=== PATIENT | male | born 1980 | race Two or more races ===

== ENCOUNTER 2025-02-28 06:30 | Emergency (ER) | payer MEDICAID, SELFPAY ==
[2025-02-28 06:32] VITALS: BP 126/88; PULSE 93; RESP 17; TEMP 36.6; O2SAT 97
[2025-02-28 06:40] VITALS: PULSE 107; O2SAT 98; BMI 25.0
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
[2025-02-28 07:18] LABS: Basophils # (Auto) 0.1 Thou/mm3 (0.0-0.2); Basophils % (Auto) 1 % (0-2.5); Eosinophils # (Auto) 0.2 Thou/mm3 (0.0-0.5); Eosinophils % (Auto) 3 % (0-10); Hematocrit 47.5 % (41.0-53.0); Hemoglobin 16.2 g/dL (13.5-16.0); Immature Granulocytes % (Auto) 0 % (0-0); Immature Granulocytes Auto 0.03 Thou/mm3 (0.00-0.00); Lymphocytes # (Auto) 1.8 Thou/mm3 (1.0-4.8); Lymphocytes % (Auto) 24 % (10-50); Mean Corpuscular HGB Conc 34.1 g/dl (31.0-37.0); Mean Corpuscular Hemoglobin 30.2 pg (25.0-35.0); Mean Corpuscular Volume 89 fL (80-100); Monocytes # (Auto) 0.7 Thou/mm3 (0.0-0.8); Monocytes % (Auto) 9 % (0-12); Neutrophils # (Auto) 4.9 Thou/mm3 (1.8-7.7); Neutrophils % (Auto) 63 % (37-80); Nucleated Red Blood Cell % 0 /100 WBC (0); Platelet Count 348 Thou/mm3 (140-440); RDW Standard Deviation 45.5 fL (35.1-43.9); Red Blood Count 5.37 Miln/mm3 (4.50-5.90); White Blood Count 7.7 Thou/mm3 (3.8-10.6)
[2025-02-28 07:29] LABS: Alanine Aminotransferase 21 U/L (10-49); Albumin, Serum 4.6 gm/dL (3.5-5.0); Albumin/Globulin Ratio 1.6 (1.2-2.2); Alkaline Phosphatase 101 U/L (46-116); Anion Gap 6 (7-16); Aspartate Amino Transferase 27 U/L (0-34); BUN/Creatinine Ratio 6 Ratio (12-20); Bilirubin,Total 0.5 mg/dL (0.3-1.2); Blood Urea Nitrogen < 5 mg/dL (9-23); Calcium 9.2 mg/dL (8.3-10.6); Calcium (Corrected) 9.2 mg/dL (8.5-10.1); Carbon Dioxide 26.9 mMol/L (20.0-31.0); Chloride 107 mMol/L (98-107); Creatinine (Component) 0.8 mg/dL (0.6-1.3); Estimated Creatinine Clearance 106.3 mL/min (>60); Globulin 2.8 gm/dL (2.3-3.5); Glucose 96 mg/dL (74-106); Osmolality,Calculated 276 (275-295); Potassium 3.8 mMol/L (3.4-5.1); Sodium 140 mMol/L (136-145); Total Protein 7.4 gm/dL (5.7-8.2); Troponin I < 0.020 ng/mL (0.0-0.045); eGFR > 60 See Note
[2025-02-28 10:07] LABS: Troponin I < 0.020 ng/mL (0.0-0.045)
--- NOTE | 2025-02-28 10:13 | PD.EDCHEST ---
ED Chest Pain RME/HPI General Chief Complaint: Chest Pain Stated Complaint: SOB, CHEST PAIN Time Seen by Provider: 02/28/25 07:58 Arrival date/time: 02/28/25 06:30 44-year-old male with medical history significant for cigarette smoking, methamphetamine abuse, alcohol abuse presents for concerns for chest pain. There are no other associated symptoms or aggravating factors no other modifying factors, patient denies taking medication before coming to ER today Limitations: no limitations Related Data Previous Rx's ?Medication ?Instructions ?Recorded sucralfate 100 mg/mL oral 10 ml PO BID #400 mL 03/13/23 suspension (Carafate) ondansetron 4 mg disintegrating 4 mg PO Q8H PRN nausea and 08/11/23 tablet vomiting #14 tabs Allergies Allergy/AdvReac Type Severity Reaction Status Date / Time No Known Allergies Allergy Verified 03/12/23 22:18 Review of Systems Review of Systems Systems Reviewed: All systems reviewed, normal except as documented Constitutional Constitutional: Reports system reviewed and no additional complaints, except as documented, Denies fever(s) and Denies headache(s) Eyes Eyes: Reports system reviewed and no additional complaints, except as documented and Denies blurry vision ENT Ears, Nose, Mouth, and Throat: Reports system reviewed and no additional complaints, except as documented, Denies headache(s), Denies nasal congestion and Denies nasal discharge Cardiovascular Cardiovascular: Reports system reviewed and no additional complaints, except as documented, Reports chest pain and Denies dyspnea Respiratory Respiratory: Reports system reviewed and no additional complaints, except as documented, Denies chest congestion, Denies cough and Denies dyspnea Gastrointestinal Gastrointestinal: Reports system reviewed and no additional complaints, except as documented and Denies abdominal pain Integumentary/Breasts Skin/Breast: Reports system reviewed and no additional complaints, except as documented and Denies rash Neurologic Neurologic: Reports system reviewed and no additional complaints, except as documented, Reports as per HPI and Denies headache(s) Past Medical History Past Medical History CARDIAC: Negative Congestive Heart Failure RESPIRATORY: Negative Chronic Obstructive Pulmonary Disease (COPD) GENITOURINARY: Negative Renal Disease ENDOCRINE: Negative Diabetes Mellitus Type 1 or Diabetes Mellitus Type 2 Social History SMOKING STATUS: Current every day smoker SUBSTANCE USE: methamphetamine ED Exam General Limitations: Present no limitations General appearance: Present alert and in no apparent distress Head Head exam: Present atraumatic, normocephalic and normal inspection Eye Eye exam: Present normal appearance, PERRL and EOMI; Absent conjunctival injection ENT ENT exam: Present normal exam, normal oropharynx and mucous membranes moist Neck Neck exam: Present normal inspection, full ROM and trachea midline Chest Chest inspection: Present normal inspection and symmetric chest wall rise Respiratory Respiratory exam: Present normal lung sounds bilaterally; Absent respiratory distress Cardiovascular Cardiovascular exam: Present regular rate, normal rhythm and normal heart sounds; Absent bradycardia, tachycardia, irregular rhythm, systolic murmur, diastolic murmur or JVD Abdominal Exam Abdominal exam: Present soft and normal bowel sounds Extremities Exam Extremities exam: Present normal inspection and full ROM Back Exam Back exam: Present normal inspection and full ROM Neurological Exam Neurological exam: Present alert, oriented X3 and CN II-XII intact Psychiatric Psychiatric exam: Present normal affect and normal mood Skin Skin exam: Present warm, dry, intact and normal color Course Quality Measures none Orders Category Date Time Status EKG (ED ONLY) *Do not use* NOW Care 02/28/25 06:55 Completed EKG (ED Only) Stat Exams 02/28/25 06:55 Ordered XR chest 2V Stat Exams 02/28/25 06:55 Completed CBC Stat Lab 02/28/25 07:05 Completed Comprehensive Metabolic Panel Stat Lab 02/28/25 07:05 Completed Troponin I Stat Lab 02/28/25 07:05 Completed Troponin I Stat Lab 02/28/25 09:46 Completed Vital Signs Vital signs: Vital Signs Temperature 97.8 F 02/28/25 06:32 Pulse Rate 93 02/28/25 06:32 Respiratory Rate 17 02/28/25 06:32 Blood Pressure 126/88 H 02/28/25 06:32 Pulse Oximetry (%) 97 02/28/25 06:32 Oxygen Delivery Method Room Air 02/28/25 06:32 O2 saturation 97% room air WNL Procedures -ED EKG Interpretation #1: Date of EK02/28/25 Time of EK:56 Rate: 92 Interpretation: Interpreted by me EKG Impression: Normal sinus rhythm, No acute ST-T changes, No ectopy, No ischemic changes, Normal QRS, Normal intervals and Normal axis Chest Pain MDM Narrative MDM Narrative:: 44-year-old male with medical history significant for cigarette smoking, methamphetamine abuse, alcohol abuse presents for concerns for chest pain. There are no other associated symptoms or aggravating factors no other modifying factors, patient denies taking medication before coming to ER today On exam patient does not appear ill or toxic in no acute distress Lab work imaging and EKG obtained no acute emergent findings noted Troponin negative x 2 EKG sinus rhythm Patient discharged home in no distress to follow-up with primary care doctor in the next 24 to 48 hours and for any worsening symptoms to return to the ER immediately Patient data External records reviewed:: [facility] previous records Clinical information provided by:: patient Social determinants that could affect healthcare access:: substance use Patient has the following chronic illnesses:: See history How is presenting disease/condition affected by chronic disease/condition?: exacerbated by Evaluation data The following diagnostics were reviewed and interpreted by me:: lab results, radiology exam(s) and EKG tracing(s) Lab and/or radiology exams considered but not ordered:: Labs, radiology, EKG obtained Interpretation Summary: Reviewed by me Medications / Prescriptions Medications or Prescriptions considered but not ordered:: No meds Medication administrations:: No meds Consultations Consultation(s) initiated? (list below): No Diagnosis Chest Pain Differential Diagnosis: pneumothorax, atypical chest pain, st elevation myocardial infarction, costochondritis and chest pain Most likely diagnosis given after review of the tests above:: Chest pain Admission Indicated Admission indicated?: not indicated Admission Request Was there a request for admission?: No Disposition Plan Disposition Plan: Discharge Discharge Attestation Discharge Attestation: The patient and all family members were given an opportunity to ask questions and understood the discharge instructions. Discharge instructions specifically effects, indications for sooner follow up or return to the emergency department, and the expected course of current diagnosis. Patient condition: Stable Discharge Plan Plan Patient Disposition: HOME (Self Care) Disposition Comment: Stable Prescriptions/Referrals Prescriptions/Med Rec: No Action sucralfate [Carafate] 100 mg/mL suspension 10 ml PO BID Qty: 400 0RF ondansetron 4 mg tablet,disintegrating 4 mg PO Q8H PRN (Reason: nausea and vomiting) Qty: 14 0RF Referrals: Rosalio Aggarwal MD [Primary Care Provider] - 03/03/25 Problem List Clinical Impression: Atypical chest pain Patient/Caregiver Discharge Instructions Education Materials: ED Chest Pain, Noncardiac Additional Instructions: Please follow up with your primary care doctor in the next 24-48hrs for any worsening symptoms return here immediately Print Language: Tamazight Stand Alone Forms: Candy Egan Info., Patient Portal Info Letter PA/BONDING SUPERVISOR Supervising Physician PA/BONDING SUPERVISOR Supervising Physician: Dr. manning
[2025-02-28 10:22] VITALS: BP 129/89; PULSE 92; RESP 16; TEMP 36.6; O2SAT 95
== END 2025-02-28 10:20 | disposition home or self-care (01) ==
PROVIDERS: Nurse Practitioner Primary Care; Emergency Provider Emergency Medicine; PCP Family Medicine
DX: R07.89 Other chest pain (principal); F17.210 Nicotine dependence, cigarettes, uncomplicated
CPT/HCPCS: 36415; 71046; 80053; 80307; 84484; 85025; 93005; 99283

== ENCOUNTER 2025-04-10 12:06 | Emergency (ER) | payer MEDICAID, SELFPAY ==
[2025-04-10 12:07] VITALS: BMI 25.0
--- NOTE | 2025-04-10 12:09 | EKG_ITS ---
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
[2025-04-10 12:22] VITALS: BP 132/91; PULSE 95; RESP 18; TEMP 36.6; O2SAT 98; BMI 25.8
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
[2025-04-10 13:03] LABS: Collection Type, Urine Clean Catch; Squamous Epithelial Cell,Urine 0 /hpf (0-5)
[2025-04-10 13:05] LABS: Bilirubin,Urine Negative (Negative); Blood,Urine Negative (Negative); Clarity,Urine Clear (Clear/Hazy); Color,Urine Yellow (Lt Yel-Yel); Glucose, Urine Negative (Negative); Ketones,Urine Trace (Negative); Leukocyte Esterase,Urine Negative (Negative); Nitrite,Urine Negative (Negative); Protein,Urine Negative (Neg - Trace); RBC,Urine 1 /hpf (0-3); Specific Gravity,Urine 1.029 (1.001-1.035); WBC,Urine 1 /hpf (0-5)
[2025-04-10 13:15] LABS: Amphetamine/Methamp Scrn,U Negative (Negative); Barbiturate Screen,Urine Negative (Negative); Benzodiazepines Screen,Urine Negative (Negative); Benzoylecgonine Screen, Ur Negative (Negative); Fentanyl Screen,Urine Negative (Negative); Opiate Screen,Urine Negative (Negative); THC Screen,Urine Negative (Negative)
[2025-04-10 13:19] LABS: Basophils # (Auto) 0.1 Thou/mm3 (0.0-0.2); Basophils % (Auto) 1 % (0-2.5); Eosinophils # (Auto) 0.3 Thou/mm3 (0.0-0.5); Eosinophils % (Auto) 3 % (0-10); Hematocrit 45.1 % (41.0-53.0); Hemoglobin 15.8 g/dL (13.5-16.0); Immature Granulocytes % (Auto) 1 % (0-0); Immature Granulocytes Auto 0.04 Thou/mm3 (0.00-0.00); Lymphocytes % (Auto) 25 % (10-50); Mean Corpuscular Hemoglobin 31.5 pg (25.0-35.0); Mean Corpuscular Volume 90 fL (80-100); Monocytes # (Auto) 0.7 Thou/mm3 (0.0-0.8); Monocytes % (Auto) 9 % (0-12); Neutrophils # (Auto) 5.1 Thou/mm3 (1.8-7.7); Neutrophils % (Auto) 62 % (37-80); Nucleated Red Blood Cell % 0 /100 WBC (0); Platelet Count 304 Thou/mm3 (140-440); RDW Standard Deviation 45.6 fL (35.1-43.9); Red Blood Count 5.01 Miln/mm3 (4.50-5.90); White Blood Count 8.2 Thou/mm3 (3.8-10.6)
[2025-04-10 13:34] LABS: B-Type Natriuretic Peptide < 20 pg/mL (0-100)
[2025-04-10 13:37] LABS: Alanine Aminotransferase 99 U/L (10-49); Albumin, Serum 4.4 gm/dL (3.5-5.0); Alkaline Phosphatase 142 U/L (46-116); Anion Gap 6 (7-16); Aspartate Amino Transferase 93 U/L (0-34); BUN/Creatinine Ratio 13 Ratio (12-20); Bilirubin,Total 0.3 mg/dL (0.3-1.2); Blood Urea Nitrogen 13 mg/dL (9-23); Carbon Dioxide 29.8 mMol/L (20.0-31.0); Chloride 106 mMol/L (98-107); Estimated Creatinine Clearance 85.1 mL/min (>60); Globulin 2.2 gm/dL (2.3-3.5); Glucose 81 mg/dL (74-106); Osmolality,Calculated 282 (275-295); Potassium 4.7 mMol/L (3.4-5.1); Sodium 142 mMol/L (136-145); Total Protein 6.6 gm/dL (5.7-8.2); Troponin I < 0.002 ng/mL (0.0-0.045); eGFR > 60 See Note
[2025-04-10 15:40] VITALS: BP 147/91; PULSE 77; RESP 17; TEMP 36.5; O2SAT 98
== END 2025-04-10 15:43 | disposition home or self-care (01) ==
PROVIDERS: Nurse Practitioner Family; Emergency Provider Emergency Medicine
DX: R07.2 Precordial pain (principal)
CPT/HCPCS: 36415; 71046; 80053; 80307; 81001; 83880; 84484; 85025; 93005; 99283

== ENCOUNTER 2025-04-19 13:46 | Emergency (ER) | payer MEDICAID, SELFPAY ==
[2025-04-19 13:53] VITALS: BP 136/88; PULSE 109; RESP 20; TEMP 36.8; O2SAT 95; BMI 24.7
--- NOTE | 2025-04-19 14:15 | EDNOTE_ITS ---
ED Chest Pain RME/HPI General Chief Complaint: Chest Pain Stated Complaint: CHEST PAIN, BLACK STOOL Time Seen by Provider: 04/19/25 13:49 Arrival date/time: 04/19/25 13:46 This is a 44-year-old male that comes into the emergency room with complaints of chest pain. Patient states he was seen here approximately 5 days ago for the same reason. Patient able to elicit his chest pain with movement of his left arm. Patient states it hurts to take deep breaths at times. Patient states he started having black stool recently. But he also started taking iron supplementation. Patient having no acute bright red blood coming out of his rectum. Related Data Previous Rx's ?Medication ?Instructions ?Recorded sucralfate 100 mg/mL oral 10 ml PO BID #400 mL 3 suspension (Carafate) ondansetron 4 mg disintegrating 4 mg PO Q8H PRN nausea and 08/11/23 tablet vomiting #14 tabs cyclobenzaprine 10 mg tablet 10 mg PO HS #20 tabs 06/06 ibuprofen 800 mg tablet 800 mg PO Q6H PRN pain #20 t abs 04/19/25 Allergies Allergy/AdvReac Type Severity Reaction Status Date / Time No Known Allergies Allergy Verified 04/10/25 12:08 Course Orders Category Date Time Status CBC Stat Lab 04/19/25 14:42 Completed Comprehensive Metabolic Panel Stat Lab 04/19/25 14:42 Completed CYCLObenzaPRINE [Flexeril] Med 04/19/25 14:16 Discontinued 10 mg PO X1 ONE Ibuprofen Tab [Motrin Tab] Med 04/19/25 14:16 Discontinued 800 mg PO X1 ONE Vital Signs Vital signs: Vital Signs Temperature 98.3 F 04/19/25 13:53 Pulse Rate 109 H 04/19/25 13:53 Respiratory Rate 20 04/19/25 13:53 Blood Pressure 136/88 H 04/19/25 13:53 Pulse Oximetry (%) 95 04/19/25 13:53 Oxygen Delivery Method Room Air 04/19/25 13:53 Chest Pain MDM Narrative MDM Narrative:: Discussed patient at length. Patient feels better after medications. Patient taking iron for the past couple weeks. It is likely this is making his stool dark in color. Patient did not want rectal exam at this time. Labs reviewed and were unremarkable patient feels better after medications. Will send patient home with muscle relaxers and anti-inflammatories. Patient told to follow-up with primary provider in 1 to 2 days [place] to the emergency room if symptoms change or worsen peer Medications / Prescriptions Medication administrations:: Medication Administration History Discontinued Medications Cyclobenzaprine HCl (Cyclobenzaprine 5 Mg Tablet) 10 mg PO X1 ONE Stop: 04/19/25 14:17 Last Admin: 04/19/25 15:16 Dose: 10 mg Documented By: WILLIE Ibuprofen (Ibuprofen Tab 400 Mg Tablet) 800 mg PO X1 ONE Stop: 04/19/25 14:17 Last Admin: 04/19/25 15:16 Dose: 800 mg Documented By: WILLIE Discharge Plan Plan Patient Disposition: HOME (Self Care) Patient condition on transfer: Stable Prescriptions/Referrals Prescriptions/Med Rec: New cyclobenzaprine 10 mg tablet 10 mg PO HS Qty: 20 0RF ibuprofen 800 mg tablet 800 mg PO Q6H PRN (Reason: pain) Qty: 20 0RF No Action sucralfate [Carafate] 100 mg/mL suspension 10 ml PO BID Qty: 400 0RF ondansetron 4 mg tablet,disintegrating 4 mg PO Q8H PRN (Reason: nausea and vomiting) Qty: 14 0RF Referrals: Kassy Case MD [Primary Care Provider] - In 1 week Problem List Clinical Impression: Costochondritis, Chest pain Patient/Caregiver Discharge Instructions Discharge Activity: activity as tolerated Education Materials: Costochondritis Additional Instructions: Follow up with primary provider in 1-2 days. Come back to ED if symptoms change or worsen Print Language: Burkinan Stand Alone Forms: Candy Award Info., Patient Portal Info Letter PA/PRINCIPAL ELECTRICAL ENGINEER Supervising Physician PA/PRINCIPAL ELECTRICAL ENGINEER Supervising Physician: corky
[2025-04-19 14:49] LABS: Basophils # (Auto) 0.1 Thou/mm3 (0.0-0.2); Basophils % (Auto) 1 % (0-2.5); Eosinophils # (Auto) 0.2 Thou/mm3 (0.0-0.5); Eosinophils % (Auto) 3 % (0-10); Hematocrit 41.8 % (41.0-53.0); Hemoglobin 14.6 g/dL (13.5-16.0); Immature Granulocytes % (Auto) 1 % (0-0); Immature Granulocytes Auto 0.04 Thou/mm3 (0.00-0.00); Lymphocytes # (Auto) 2.2 Thou/mm3 (1.0-4.8); Lymphocytes % (Auto) 31 % (10-50); Mean Corpuscular HGB Conc 34.9 g/dl (31.0-37.0); Mean Corpuscular Hemoglobin 31.3 pg (25.0-35.0); Mean Corpuscular Volume 90 fL (80-100); Monocytes # (Auto) 0.6 Thou/mm3 (0.0-0.8); Monocytes % (Auto) 8 % (0-12); Neutrophils # (Auto) 4.1 Thou/mm3 (1.8-7.7); Neutrophils % (Auto) 56 % (37-80); Nucleated Red Blood Cell % 0 /100 WBC (0); Platelet Count 313 Thou/mm3 (140-440); RDW Standard Deviation 44.3 fL (35.1-43.9); Red Blood Count 4.67 Miln/mm3 (4.50-5.90); White Blood Count 7.2 Thou/mm3 (3.8-10.6)
[2025-04-19 15:06] LABS: Alanine Aminotransferase 47 U/L (10-49); Albumin, Serum 4.2 gm/dL (3.5-5.0); Albumin/Globulin Ratio 2.3 (1.2-2.2); Alkaline Phosphatase 104 U/L (46-116); Anion Gap 6 (7-16); BUN/Creatinine Ratio 11 Ratio (12-20); Bilirubin,Total 0.3 mg/dL (0.3-1.2); Blood Urea Nitrogen 12 mg/dL (9-23); Calcium 8.8 mg/dL (8.3-10.6); Calcium (Corrected) 8.8 mg/dL (8.5-10.1); Carbon Dioxide 30.3 mMol/L (20.0-31.0); Chloride 108 mMol/L (98-107); Creatinine (Component) 1.1 mg/dL (0.6-1.3); Estimated Creatinine Clearance 77.3 mL/min (>60); Globulin 1.8 gm/dL (2.3-3.5); Glucose 98 mg/dL (74-106); Osmolality,Calculated 286 (275-295); Potassium 4.6 mMol/L (3.4-5.1); Sodium 144 mMol/L (136-145); eGFR > 60 See Note
[2025-04-19] MEDS: CYCLObenzaPRINE 5 MG TABLET 10 MG PO (15:16)
[2025-04-19] MEDS: IBUPROFEN TAB 400 MG TABLET 800 MG PO (15:16)
[2025-04-19 16:46] VITALS: BP 135/83; PULSE 91; RESP 20; TEMP 36.7; O2SAT 97
== END 2025-04-19 17:24 | disposition home or self-care (01) ==
PROVIDERS: Nurse Practitioner Family; Emergency Provider Family Medicine; PCP Student in an Organized Health Care Education/Training Program
DX: M94.0 Chondrocostal junction syndrome [Tietze] (principal)
CPT/HCPCS: 36415; 80053; 85025; 99283; A9270

== ENCOUNTER 2025-06-25 07:23 | Emergency (ER) | payer MEDICAID, SELFPAY ==
[2025-06-25 07:24] VITALS: BP 110/75; PULSE 78; RESP 18; TEMP 36.7; O2SAT 95; BMI 25.2
[2025-06-25 07:34] VITALS: PULSE 82; O2SAT 99
--- NOTE | 2025-06-25 07:38 | EKG_ITS ---
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
--- NOTE | 2025-06-25 07:41 | PC.NURSE ---
Patient to er via ems patient fell at work. Patient states he fell on to left side c/o left flank pain and left sided chest pain, worse with inspiration, patient denies loc, denies hitting his head, denies PMH, NKA. Currently patient states pain 10/10, chart up to be seen by er providers.
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
[2025-06-25 08:24] VITALS: BP 103/65; PULSE 64; RESP 18; TEMP 36.9; O2SAT 99
[2025-06-25] MEDS: KETOROLAC INJ 60 MG/2 ML VIAL IM (08:37)
[2025-06-25 10:56] VITALS: BP 103/69; PULSE 77; RESP 16; TEMP 36.6; O2SAT 96
== END 2025-06-25 10:56 | disposition home or self-care (01) ==
PROVIDERS: Emergency Provider Family Medicine; PCP Family Medicine
DX: S22.32XA Fracture of one rib, left side, initial encounter for closed fracture (principal); W01.0XXA Fall on same level from slipping, tripping and stumbling without subsequent striking against object, initial encounter; Y99.0 Civilian activity done for income or pay
CPT/HCPCS: 71101; 93005; 96372; 99283; J1885; A9270